=== PATIENT | female | born 2000 | race African-American/Black ===

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

== ENCOUNTER 2019-01-30 20:08 | Emergency (ER) | payer OTHER ==
[2019-01-30 20:51] LABS: Bilirubin Negative (Negative); Blood, Urine Small (Negative); Clarity Clear (Clear); Glucose, Urine (Dipstick) Negative (Negative); Leukocyte Negative (Negative); Nitrite Negative (Negative); Protein, Urine (Dipstick) Trace mg/dL (Neg-Trace); Urobilinogen 0.2 mg/dL (0.2-1.0); pH, Urine 6.5 (5.0-9.0)
[2019-01-30 20:52] LABS: Pregnancy Test - Urine (BHCG) Negative (Negative); Pregu Control Background? CLEAR/WHITE (CLR/WHITE); Pregu Control Bar Appear? YES (CONTROL BAR)
[2019-01-30] MEDS ORDERED: Sulfameth/Trimethoprim DS 800-160mg TAB ONE (20:56)
[2019-01-30 20:57] LABS: Squamous Epithelial 0-3 HPF (0-3)
[2019-01-30 20:58] LABS: Bacteria/HPF None Seen HPF (None Seen)
== END 2019-01-30 22:26 | disposition home or self-care (01) ==
LOC: MADERS 20:08
DX: N30.00 Acute cystitis without hematuria (principal); K21.9 Gastro-esophageal reflux disease without esophagitis; Z79.899 Other long term (current) drug therapy
CPT/HCPCS: 81001; 81025; 99284

== ENCOUNTER 2021-04-23 09:33 | Emergency (ER) | payer MEDICAID, OTHER ==
[2021-04-23] MEDS ORDERED: Dexamethasone 4 MG TAB ONE (10:10)
[2021-04-23 10:23] LABS: Bilirubin Negative (Negative); Blood, Urine Negative (Negative); Clarity Clear (Clear); Glucose, Urine (Dipstick) Negative (Negative); Ketone, Urine Negative (Negative); Leukocyte Trace (Negative); Nitrite Negative (Negative); Protein, Urine (Dipstick) Negative (Neg-Trace); Urobilinogen 0.2 mg/dL (Less than 2)
[2021-04-23 10:24] LABS: Pregnancy Test - Urine (BHCG) Negative (Negative); Pregu Control Background? CLEAR/WHITE (CLR/WHITE); Pregu Control Bar Appear? YES (CONTROL BAR)
[2021-04-23 10:28] LABS: Bacteria/HPF Rare-Few HPF (None Seen); RBC/HPF 0-3 HPF (0-3)
[2021-04-25 21:39] LABS: Chlam.trachomatis by PCR,Urine Not Detected (NotDetected)
== END 2021-04-23 10:25 | disposition home or self-care (01) ==
LOC: MADERS 09:33
DX: J20.8 Acute bronchitis due to other specified organisms (principal); J02.9 Acute pharyngitis, unspecified; Z20.2 Contact with and (suspected) exposure to infections with a predominantly sexual mode of transmission; J45.909 Unspecified asthma, uncomplicated; K21.9 Gastro-esophageal reflux disease without esophagitis
CPT/HCPCS: 81003; 81015; 81025; 87491; 87591; 99283; J8540

== ENCOUNTER 2021-06-15 17:35 | Emergency (ER) | payer OTHER ==
[~2021-06-15 17:35] MED LIST: Iopamidol 370 76% 100 ML VIAL ONE; Sodium Chloride 0.9% 1,000 ML BAG ONE
[2021-06-15 18:51] LABS: #Basophils 0.1 thou/uL (0.0-0.2); #Lymphocytes 1.6 thou/uL (1.20-3.40); #Monocytes 0.4 thou/uL (0.11-0.59); #Neutrophils 12.1 thou/uL (1.40-6.50); %Basophils 0.8 % (0.0-1.0); %Eosinophils 0.3 % (0.0-10.0); %Lymphocytes 10.9 % (21.0-51.0); %Monocytes 3.1 % (0.0-10.0); Hemoglobin 14.5 g/dL (12.0-16.0); Mean Corpuscular HGB CONC 30.3 g/dL (32.0-36.0); Mean Corpuscular Hemoglobin 26.7 pg (27.0-31.0); Mean Corpuscular Volume 88.2 fL (78.0-98.0); Platelet Count 231 thou/uL (130-400); RBC Distribution Width 13.4 % (11.5-14.5); Red Blood Cell (RBC) Count 5.44 mill/uL (4.20-5.40); White Blood Cell (WBC) Count 14.3 thou/uL (4.8-10.8)
[2021-06-15] MEDS ORDERED: Ondansetron PF 4 MG/2 ML Vial ONE (18:57)
[2021-06-15 19:04] LABS: BHCG - Serum Negative (NEGATIVE); Pregs Control Background? CLEAR/WHITE (CLR/WHITE); Pregs Control Bar Appear? YES (CONTROL BAR)
[2021-06-15 19:05] LABS: ALT (SGPT) 9 U/L (8-55); AST (SGOT) 13 U/L (5-34); Albumin 4.7 g/dL (3.5-5.0); Alkaline Phosphatase 82 U/L (40-110); Anion Gap 15 mmol/L (10-20); BUN (Urea Nitrogen) 10 mg/dL (7.0-18.7); Bilirubin, Total 0.9 mg/dL (0.2-1.2); Calc. Creatinine Clearance 0 mL/min (70-130); Calcium 9.7 mg/dL (7.8-10.44); Carbon Dioxide 26 mmol/L (22-29); Chloride 102 mmol/L (98-107); Globulin 3.3 g/dL (2.4-3.5); Glucose 104 mg/dL (70-105); Lipase 11 U/L (8-78); Magnesium 1.9 mg/dL (1.6-2.6); Sodium 139 mmol/L (136-145)
[2021-06-15 20:24] LABS: Bilirubin Negative (Negative); Blood, Urine Moderate (Negative); Clarity Clear (Clear); Glucose, Urine (Dipstick) Negative (Negative); Ketone, Urine Negative (Negative); Leukocyte Trace (Negative); Nitrite Negative (Negative); Protein, Urine (Dipstick) Negative (Neg-Trace); Urobilinogen 0.2 mg/dL (Less than 2)
[2021-06-15 20:29] LABS: RBC/HPF None Seen HPF (0-3)
[2021-06-15] MEDS ORDERED: Ketorolac Tromethamine 30 MG/ML VIAL ONE (21:38)
== END 2021-06-16 00:17 | disposition short-term general hospital (02) ==
LOC: MADERS 17:35
DX: K56.1 Intussusception (principal); K56.609 Unspecified intestinal obstruction, unspecified as to partial versus complete obstruction; K21.9 Gastro-esophageal reflux disease without esophagitis; F17.290 Nicotine dependence, other tobacco product, uncomplicated
CPT/HCPCS: 36415; 74177; 80053; 81003; 81015; 83605; 83690; 83735; 84703; 85025; 87040; 96374; J1885; J2405; J7050; Q9967

== ENCOUNTER 2021-06-19 05:57 | Emergency (ER) | payer OTHER ==
[2021-06-19 06:47] LABS: #Basophils 0.1 thou/uL (0.0-0.2); #Lymphocytes 1.1 thou/uL (1.20-3.40); #Monocytes 0.5 thou/uL (0.11-0.59); #Neutrophils 9.4 thou/uL (1.40-6.50); %Basophils 0.7 % (0.0-1.0); %Eosinophils 0.2 % (0.0-10.0); %Monocytes 4.4 % (0.0-10.0); %Neutrophils 84.7 % (42.0-75.0); Hemoglobin 12.8 g/dL (12.0-16.0); Mean Corpuscular HGB CONC 30.7 g/dL (32.0-36.0); Mean Platelet Volume 10.8 fL (7.4-10.4); Platelet Count 208 thou/uL (130-400); RBC Distribution Width 13.3 % (11.5-14.5); Red Blood Cell (RBC) Count 4.73 mill/uL (4.20-5.40); White Blood Cell (WBC) Count 11.1 thou/uL (4.8-10.8)
[2021-06-19] MEDS ORDERED: Sodium Chloride 0.9% 1,000 ML BAG ONE (06:55)
[2021-06-19 07:01] LABS: ALT (SGPT) 15 U/L (8-55); AST (SGOT) 24 U/L (5-34); Albumin 3.8 g/dL (3.5-5.0); Alkaline Phosphatase 63 U/L (40-110); Anion Gap 15 mmol/L (10-20); BUN (Urea Nitrogen) 7 mg/dL (7.0-18.7); Bilirubin, Total 0.6 mg/dL (0.2-1.2); Calc. Creatinine Clearance 0 mL/min (70-130); Carbon Dioxide 24 mmol/L (22-29); Chloride 104 mmol/L (98-107); Globulin 2.7 g/dL (2.4-3.5); Glucose 120 mg/dL (70-105); Potassium 3.7 mmol/L (3.5-5.1); Protein, Total 6.5 g/dL (6.0-8.3); Sodium 139 mmol/L (136-145)
[2021-06-19 07:09] LABS: BHCG - Serum Negative (NEGATIVE); Pregs Control Background? CLEAR/WHITE (CLR/WHITE); Pregs Control Bar Appear? YES (CONTROL BAR)
[2021-06-19] MEDS ORDERED: metroNIDAZOLE 500 MG/100 ML BAG ONE (10:39)
[2021-06-19] MEDS ORDERED: Cefepime 2 GM VIAL ONE (10:39)
[2021-06-19] MEDS ORDERED: Sodium Chloride 0.9% 100 ML ONE (10:39)
[2021-06-19] MEDS ORDERED: Morphine 4 MG/ML VIAL ONE (10:39)
[2021-06-19] MEDS ORDERED: Iopamidol 370 76% 100 ML VIAL ONE (11:47)
== END 2021-06-19 14:39 | disposition short-term general hospital (02) ==
LOC: MADERS 05:57
DX: A09 Infectious gastroenteritis and colitis, unspecified (principal); K56.1 Intussusception; Z91.19 Patient's noncompliance with other medical treatment and regimen; J45.909 Unspecified asthma, uncomplicated; F17.290 Nicotine dependence, other tobacco product, uncomplicated; Z79.899 Other long term (current) drug therapy
CPT/HCPCS: 74177; 80053; 84703; 85025; 87040; 96365; 96367; 96375; J0692; J2270; J3490; J7050; Q9967